=== PATIENT | female | born 1980 | race Caucasian/White ===

== ENCOUNTER 2023-03-24 16:08 | Emergency (ER) | payer OTHER, SELFPAY ==
[2023-03-24] VITALS (7 sets, daily range): BP systolic 144; BP diastolic 92; PULSE 62–81; RESP 22; TEMP 36.4; O2SAT 97–99; BMI 34.3
--- NOTE | 2023-03-24 16:26 | ED.GENADULT ---
HPI - General Adult General Chief complaint: Chest Pain Stated complaint: Concerns about possible heart attack Time Seen by Provider: 03/24/23 16:19 Source: patient Mode of arrival: ambulatory Limitations: no limitations History of Present Illness HPI narrative: 42-year-old female coming in today complaining of chest pressure, stiff neck and tingling in all 4 extremities going up for a couple of weeks. Today she had some increasing chest pressure and she was scared so she came in for evaluation. Patient is very tearful tells me that her mother exactly a year ago and she has had a really tough year. She has a trial with type 1 diabetes so she is constantly stressed and worried, does not sleep well at night. She is to that is not supportive. She feels overwhelmed, depressed. She has tried duloxetine in the past made her feel drugged so she stopped it she is on bupropion now but feels like it is not doing a whole lot for her. She does see a counselor regularly. She states that she is also chronically short of breath. Does not matter with rest or activity. She denies any recent travel or long car rides. She does state that she is on an estradiol patch secondary to hysterectomy. Related Data Home Medications Medication Instructions Recorded Confirmed bupropion HCl 150 mg 24 hr tablet, 150 mg PO DAILY 07/21/22 03/24/23 extended release cholecalciferol (vitamin D3) 25 25 mcg PO QDAY 07/21/22 03/24/23 mcg (1,000 unit) tablet fluticasone propionate 50 1 intranasal BID 07/21/22 07/21/22 mcg/actuation nasal spray,suspension multivitamin with minerals 1 tab PO QDAY 07/21/22 07/21/22 (Multiple Vitamin-Minerals tablet) metoprolol succinate 25 mg capsule 25 mg PO DAILY 03/24/23 03/24/23 sprinkle, ext. release 24 hr Previous Rx's Medication Instructions Recorded estradiol 0.05 mg/24 hr semiweekly 1 patch transdermal 2XW #24 ea 07/21/22 transdermal patch fluconazole 150 mg tablet 150 mg PO Q3D 2 doses #2 tabs 07/21/22 (Diflucan) estradiol 0.1 mg/24 hr semiweekly 1 patch transdermal 2XW #24 ea 01/13/23 transdermal patch (Vivelle-Dot) Allergies Allergy/AdvReac Type Severity Reaction Status Date / Time Chlorhexidine Allergy Intermediate Rash Uncoded 03/24/23 17:49 Clindamycin Allergy Intermediate Rash Uncoded 03/24/23 17:49 Sulfa drugs Allergy Intermediate Gastrointestinal Uncoded 03/24/23 17:49 Upset Tetracycline Allergy Intermediate rash Uncoded 03/24/23 17:49 Amoxicillin Allergy Rash Uncoded 03/24/23 17:49 Review of Systems Status of ROS: Reports: 10 or more systems reviewed and unremarkable except as noted in History and [facility] History depression (08/30/10) ?F53.0 - depression (ICD-10) Gestational diabetes (08/30/10) ?O24.419 - Gestational diabetes mellitus in , unspecified control (ICD-10) Atrial fibrillation with rapid ventricular response (01/2020) ?I48.91 - Unspecified atrial fibrillation (ICD-10) Surgical History History of prophylactic mastectomy of both breasts (11/03/18) ?Z90.13 - Acquired absence of bilateral breasts and nipples (ICD-10) History of delivery ?Z98.891 - History of uterine scar from previous surgery (ICD-10) History of hysterectomy with oophorectomy (01/27/19) Status post surgical removal of both fallopian tubes (07/29/16) ?Z90.79 - Acquired absence of other genital organ(s) (ICD-10) Family History Father Coronary artery disease High blood pressure Bipolar disorder High cholesterol Alcohol dependence Mother Coronary artery disease Diabetes Depression Kidney disease BRCA1 genetic carrier Brother Depression Aunt Breast cancer Aunt Breast cancer Ovarian cancer Aunt Primary cancer of peritoneum Family/Other Breast cancer Maternal Grandmother Breast cancer Aunt Ovarian cancer, Onset Age: 40 Social History Narrative: 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 Highest level of school completed/degree received: Bachelor's degree Physical activity type details: Cardio How many days of moderate to strenuous exercise, like a brisk walk, did you do in the last 7 days: 4 Smoking Status: Never smoker How often do you have a drink containing alcohol: never AUDIT-C Alcohol total score: 0 Non-prescribed substance use: denies use Are you now , , , , never or living with a partner: Social isolation score (0-1 are the most socially isolated patients): 1 Little interest or pleasure in doing things: nearly every day Feeling down, depressed, or hopeless: nearly every day Do you think of yourself as: straight/heterosexual Gender Identity: female Are you currently sexually active: Yes In the past 12 months, how many sex partners have you had: one Exam Narrative: Exam Narrative: Well-nourished well-developed patient very tearful. Alert and oriented. Answers questions appropriately. Mood is very sad. Thoughts are goal oriented and rational. No tangential or magical thinking noted. Patient speaks in full sentences without needing to catch her breath. HEENT: Normocephalic atraumatic. Pupils are equally round reactive to light. Extraocular muscles are intact. Conjunctivae are moist without any icterus noted. Moist mucous membranes. Posterior pharynx is normal. Neck is soft without any lymphadenopathy or thyromegaly. No masses are appreciated. Cardiovascular: Heart is regular rate and rhythm S1 and S2 are present without any murmurs. Lungs: Clear to auscultation bilaterally no wheezes rhonchi or rales are appreciated. Patient takes deep breaths without any discomfort. Abdomen: Soft and nontender nondistended with normal bowel sounds. No guarding or rebound. No masses or organomegaly appreciated. Extremities: Bilateral lower extremities are without edema. Normal DP and PT pulses. Skin: Well perfused without any obvious rashes. Const: Vital Signs, click to edit/add: Vital Signs - 24 hr 03/24/23 16:10 Temperature 97.6 F Pulse Rate [Right Pulse Oximeter] 81 Respiratory Rate 22 Blood Pressure [Ri ght Upper Arm] 144/92 H Pulse Oximetry 99 Oxygen Delivery Me thod Room Air Course Course Hospital Course: EKG, read by me, shows normal sinus rhythm. Labs were unremarkable. D-dimer unfortunately was elevated. Therefore chest CT was done which did not show any PE however did show 2 pulmonary nodules. Patient had a dec assessment done: Patient stated she was having increased depression and anxiety, is grieving the loss of her mother and feels stressed out due to caring for a child with type 1 diabetes. She is seeing a psychiatrist for medical management and therapist twice per month. Per deck she will have an appointment tomorrow with a grief counselor and will increase her counseling to weekly. No thoughts of homicide or suicide. Vital Signs Vital signs: Initial Vital Signs Temperature 97.6 F 03/24/23 16:10 Temperature Source Temporal Artery Scan 03/24/23 16:10 Pulse Rate 81 03/24/23 16:10 Respiratory Rate 22 03/24/23 16:10 Blood Pressure 144/92 H 03/24/23 16:10 Blood Pressure Mean 109 H 03/24/23 16:10 Blood Pressure Position Sitting 03/24/23 16:10 Pulse Oximetry 99 03/24/23 16:10 Oxygen Delivery Method Room Air 03/24/23 16:10 Vital Signs Temperature 97.6 F 03/24/23 16:10 Pulse Rate 81 03/24/23 16:10 Respiratory Rate 22 03/24/23 16:10 Blood Pressure 144/92 H 03/24/23 16:10 Pulse Oximetry 99 03/24/23 16:10 Oxygen Delivery Method Room Air 03/24/23 16:10 Temperature 97.6 F 03/24/23 16:10 Pulse Rate 81 03/24/23 16:10 Respiratory Rate 22 03/24/23 16:10 Blood Pressure 144/92 H 03/24/23 16:10 Pulse Oximetry 99 03/24/23 16:10 Oxygen Delivery Method Room Air 03/24/23 16:10 Medical Decision Making MDM Narrative Medical decision making narrative: 42-year-old female with increasing anxiety depression. Plan per above. Will also need a repeat CT scan to follow-up on pulmonary nodules. Lab Data Lab results reviewed: Yes I reviewed the patient's lab results Labs: Lab Results 03/24/23 Range/Units 16:40 WBC 7.51 (4.50-11.00) K/uL RBC 4.44 (4.00-5.20) m/uL Hgb 13.4 (12.0-16.0) gm/dL Hct 40.0 (33.0-51.0) % MCV 90 (80-100) fL MCH 30 (26-34) pg MCHC 34 (32-36) gm/dL RDW Coeff of Adalid 11.1 L (11.5-15.5) % Plt Count 238 (140-440) K/uL Neut % (Auto) 69.2 (42.0-72.0) % Lymph % (Auto) 17.3 L (20-44) % Greene % (Auto) 11.2 H (0.0-11.0) % Eos % (Auto) 1.9 (0.0-7.0) % Baso % (Auto) 0.3 (0.0-3.0) % Neut # (Auto) 5.20 (1.7-7.0) K/uL Lymph # (Auto) 1.30 (0.90-2.90) K/uL Greene # (Auto) 0.80 (0.00-0.90) K/UL Eos # (Auto) 0.14 (0.00-0.50) K/uL Baso # (Auto) 0.02 (0.00-0.30) K/uL D-Dimer Quant (PE/DVT) 0.77 H (0.00-0.50) ug/ml Sodium 138 (135-149) mmol/L Potassium 3.7 (3.6-5.1) mmol/L Chloride 104 (96-114) mmol/L Carbon Dioxide 26 (20-32) mmol/L BUN 13 (5-24) mg/dL Creatinine 0.7 (0.5-1.5) mg/dL Estimated Creat Clear 89.48 Estimated GFR 110 ml/min Glucose 92 (60-115) mg/dL Calcium 9.0 (8.4-10.6) mg/dL Total Bilirubin 0.7 (0.1-1.5) mg/dL Direct Bilirubin 0.3 (0.0-0.5) mg/dL AST 21 (12-35) U/L ALT 17 (4-35) U/L Alkaline Phosphatase 55 (40-150) U/L Troponin I < 0.01 L (0.01-0.04) ng/mL C-Reactive Protein < 0.5 L (0.5-1.0) mg/dL Total Protein 7.6 (6.0-8.3) g/dL Albumin 4.2 (3.3-5.0) g/dL Lipase 65 (23-300) U/L TSH 1.140 (0.270-4.20) uIU/mL Imaging Data CT scan - chest: Attestation: I have reviewed the pertinent imaging results. Radiologist's impression: CT chest PE was acquired with 100 cc Omnipaque 350 IV contrast. Permanently recorded images are archived. COMPARISON: None. FINDINGS: Heart and vasculature: Contrast opacification of the pulmonary arterial tree is adequate. No sign of pulmonary embolism. Heart size is normal. Thoracic aorta and pulmonary artery are normal in caliber. Lungs and pleura: 7 mm solid left lower lobe nodule, series 5, image 68. 5 mm subpleural solid nodule in the left lower lobe, series 5, image 74. No focal consolidation. No pleural effusions or pneumothorax. Lymph nodes/mediastinum: No mediastinal, hilar, or axillary adenopathy. Chest wall: Bilateral breast implants. Thyroid: Unremarkable. Upper abdomen: 4.8 cm left adrenal mass with average Hounsfield units of 2 Bones: Unremarkable for age. IMPRESSION: No pulmonary embolism. No acute findings in the chest. 7 mm and 5 mm left lower lobe pulmonary nodules. Recommend follow-up chest CT in 3-6 months. 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 ECG Data Attestation: I personally reviewed and interpreted this ECG as follows: Discharge Plan Discharge Clinical Impression: Depression with anxiety, Incidental pulmonary nodule Patient Disposition: Home, Self-Care Condition: Stable Additional Instructions: Follow-up is scheduled for tomorrow per SEP. Follow-up with Dr. Vaughn as scheduled. You will be sent home with a copy of your chest CT today so that you can go over the results with Dr. Vaughn and plan follow-up CT scan. Prescriptions: No Action bupropion HCl 150 mg tablet extended release 24 hr 150 mg PO DAILY fluticasone propionate 50 mcg/actuation spray,suspension 1 intranasal BID Multiple Vitamin-Minerals Tablet 1 tab PO QDAY cholecalciferol (vitamin D3) 25 mcg (1,000 unit) tablet 25 mcg PO QDAY estradiol 0.05 mg/24 hr patch semiweekly 1 patch transdermal 2XW Qty: 24 3RF Rx Instructions: apply 1 patch for 3 days alternating with 1 patch for 4 days each week for 3 wks per 4-wk cycle fluconazole [Diflucan] 150 mg tablet 150 mg PO Q3D Qty: 2 0RF metoprolol succinate 25 mg capsule,sprinkle,ER 24hr 25 mg PO DAILY estradiol [Vivelle-Dot] 0.1 mg/24 hr patch semiweekly 1 patch transdermal 2XW Qty: 24 1RF Rx Instructions: apply 1 patch for 3 days alternating with 1 patch for 4 days each week Follow Up/Referrals: Quirino Almaraz MD [Primary Care Provider] - Stand Alone Forms: MyHealth Info Instructions
[2023-03-24 16:50] LABS: Basophils Absolute Auto 0.02 K/uL (0.00-0.30); Basophils Percent Auto 0.3 % (0.0-3.0); Eosinophils Absolute Auto 0.14 K/uL (0.00-0.50); Eosinophils Percent Auto 1.9 % (0.0-7.0); Hemoglobin* 13.4 gm/dL (12.0-16.0); Immature Granulocytes Abs Auto 0.01 K/uL (0.00-0.30); Immature Granulocytes Pct Auto 0.1 %; Lymphocytes Percent Auto 17.3 % (20-44); Mean Corpuscular HGB Conc 34 gm/dL (32-36); Mean Corpuscular Hemoglobin 30 pg (26-34); Mean Corpuscular Volume 90 fL (80-100); Monocytes Percent Auto 11.2 % (0.0-11.0); Neutrophils Percent Auto 69.2 % (42.0-72.0); Platelet Count* 238 K/uL (140-440); RDW Coefficient of Variation % 11.1 % (11.5-15.5); Red Blood Count 4.44 m/uL (4.00-5.20); White Blood Count* 7.51 K/uL (4.50-11.00)
[2023-03-24 16:51] LABS: Slide Review Reflex No
[2023-03-24 17:02] LABS: Chloride* 104 mmol/L (96-114); Potassium* 3.7 mmol/L (3.6-5.1); Sodium* 138 mmol/L (135-149)
[2023-03-24 17:03] LABS: Albumin* 4.2 g/dL (3.3-5.0)
[2023-03-24 17:04] LABS: Creatinine* 0.7 mg/dL (0.5-1.5); Est. Creatinine Clearance* 89.48; Estimated Glomerular Filt Rate 110 ml/min
[2023-03-24 17:05] LABS: Blood Urea Nitrogen* 13 mg/dL (5-24); Carbon Dioxide* 26 mmol/L (20-32)
[2023-03-24 17:06] LABS: Bilirubin Direct* 0.3 mg/dL (0.0-0.5); Bilirubin Total* 0.7 mg/dL (0.1-1.5); Glucose* 92 mg/dL (60-115); Total Protein* 7.6 g/dL (6.0-8.3)
[2023-03-24 17:07] LABS: Alanine Aminotransferase* 17 U/L (4-35); Alkaline Phosphatase* 55 U/L (40-150); Aspartate Amino Transferase* 21 U/L (12-35); D Dimer Quantitative* 0.77 ug/ml (0.00-0.50); Lipase* 65 U/L (23-300)
[2023-03-24 17:09] LABS: C Reactive Protein* < 0.5 mg/dL (0.5-1.0)
--- NOTE | 2023-03-24 17:17 | CRLHL7_ITS ---
For Patients: As a result of the Century Cures Act, medical imaging exams and procedure reports are released immediately into your electronic medical record. You may view this report before your referring provider. If you have questions, please contact your health care provider. INDICATION: Pulmonary embolism suspected. TECHNIQUE: CT chest PE was acquired with 100 cc Omnipaque 350 IV contrast. Permanently recorded images are archived. COMPARISON: None. FINDINGS: Heart and vasculature: Contrast opacification of the pulmonary arterial tree is adequate. No sign of pulmonary embolism. Heart size is normal. Thoracic aorta and pulmonary artery are normal in caliber. Lungs and pleura: 7 mm solid left lower lobe nodule, series 5, image 68. 5 mm subpleural solid nodule in the left lower lobe, series 5, image 74. No focal consolidation. No pleural effusions or pneumothorax. Lymph nodes/mediastinum: No mediastinal, hilar, or axillary adenopathy. Chest wall: Bilateral breast implants. Thyroid: Unremarkable. Upper abdomen: 4.8 cm left adrenal mass with average Hounsfield units of 2 Bones: Unremarkable for age. IMPRESSION: No pulmonary embolism. No acute findings in the chest. 7 mm and 5 mm left lower lobe pulmonary nodules. Recommend follow-up chest CT in 3-6 months. 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 Please note that all CT scans at this facility use dose modulation, iterative reconstruction, and/or weight-based dosing when appropriate to reduce radiation dose to as low as reasonably achievable. Dictated by Douglas Headley MD @ 03/24/2023 6:27:38 PM (Electronically Signed)
[2023-03-24 17:18] LABS: Troponin I* < 0.01 ng/mL (0.01-0.04)
== END 2023-03-24 19:17 | disposition home or self-care (01) ==
PROVIDERS: Emergency Provider Family Medicine; PCP Family Medicine
DX: F41.8 Other specified anxiety disorders (principal); R91.1 Solitary pulmonary nodule
CPT/HCPCS: 36415; 71260; 80048; 80076; 83690; 84443; 84484; 85025; 85379; 86140; 93005; 94761; 99284; 99285; Q9967

== ENCOUNTER 2024-11-25 09:59 | Outpatient (CLI) | payer BC, SELFPAY ==
--- NOTE | 2024-11-25 12:00 | W.ANESCHARGE ---
Anesthesia Charges Start Date/Time Anesthesia Start Date: 11/25/24 Anesthesia Start Time: 11:20 Stop Date/Time Anesthesia Stop Date: 11/25/24 Anesthesia Stop Time: 11:58 Coding CPT Codes CPT Codes: ANES UPR LWR GI NDSC PX - 58192 ([id number]) P2 - PATIENT W/MILD SYST DISEASE, QX - DISTRIBUTION DISTRICT SUPERVISOR SVC W/ MD MED DIRECTION, QK - CLINICAL DOCUMENTATION NURSE 2-4 CNCRNT ANES PROC
--- NOTE | 2024-11-25 12:12 | W.ANESCHARGE ---
Anesthesia Charges Start Date/Time Anesthesia Start Date: 11/25/24 Anesthesia Start Time: 11:20 Stop Date/Time Anesthesia Stop Date: 11/25/24 Anesthesia Stop Time: 11:58 Coding CPT Codes CPT Codes: ANES UPR LWR GI NDSC PX - 99909 ([id number]) QK - GLUE BONE CRUSHER 2-4 CNCRNT ANES PROC, QX - PUBLIC RELATIONS INTERN SVC W/ MD MED DIRECTION, P2 - PATIENT W/MILD SYST DISEASE
== END 2024-11-25 10:00 | disposition home or self-care (01) ==
LOC: OP CLINIC 10:04
PROVIDERS: PCP Family Medicine; Visit Provider Internal Medicine Gastroenterology
DX: Z12.11 Encounter for screening for malignant neoplasm of colon (principal); R10.13 Epigastric pain; R93.3 Abnormal findings on diagnostic imaging of other parts of digestive tract
CPT/HCPCS: 00813; 43239; 45378; 88305; J2704; J3010